=== PATIENT | female | born 1995 | race African-American/Black ===

== ENCOUNTER 2023-09-25 19:04 | Emergency (ER) | payer MEDICAID ==
[~2023-09-25] VITALS: Ht 165.1 cm; Wt 94.8 kg
[2023-09-25 20:09] LABS: ADD UA MICROSCOPIC YES; APPEARANCE,URINE CLOUDY (CLEAR); BILIRUBIN,URINE NEGATIVE (NEGATIVE); COLOR,URINE YELLOW (YELLOW); GLUCOSE, URINE (UA) 50 mg/dL (NEGATIVE); KETONES,URINE 60 mg/dL (NEGATIVE); LEUKOCYTE ESTERASE ,URINE 25 Leu/uL (NEGATIVE); NITRATE,URINE NEGATIVE (NEGATIVE); OCCULT BLOOD,URINE NEGATIVE (NEGATIVE); PROTEIN,URINE 70 mg/dL (NEGATIVE); UROBILINOGEN,URINE 0.2 mg/dL (0.2-1.0)
[2023-09-25 20:13] LABS: BACTERIA,URINE FEW /HPF (None Seen); MUCUS,URINE FEW LPF (None Seen); SQUAMOUS EPITHELIAL CELL,UR FEW /HPF (0-2); YEAST,URINE BUDDING RARE /HPF (None Seen)
[2023-09-25 20:20] LABS: BASOPHILS # (AUTO) 0.06 K/uL (0.00-0.20); BASOPHILS % (AUTO) 0.5 % (0.0-5.0); EOSINOPHILS # (AUTO) 0.02 K/uL (0.00-0.70); EOSINOPHILS % (AUTO) 0.2 % (0.0-8.0); HEMATOCRIT 39.7 % (36-48); IMMATURE GRANULOCYTE ABSOLUTE 0.06 K/uL (0-1); LYMPHOCYTES # (AUTO) 1.6 K/uL (1.0-4.8); LYMPHOCYTES % (AUTO) 13.6 % (21.0-51.0); MEAN CORPUSCULAR HEMOGLOBIN 33.5 pg (27.0-33.0); MEAN CORPUSCULAR HGB CONC 34.8 g/dL (32.0-36.0); MEAN CORPUSCULAR VOLUME 96.4 fL (79-99); MONOCYTES # (AUTO) 0.9 K/uL (0.1-1.0); MONOCYTES % (AUTO) 7.5 % (3.0-13.0); NEUTROPHILS # (AUTO) 9.4 K/uL (1.8-7.7); NEUTROPHILS % (AUTO) 77.7 % (40.0-77.0); PLATELET COUNT (AUTO) 259 K/uL (130-400); RED BLOOD CELL COUNT(AUTO) 4.12 MIL/uL (4.00-5.50); RED CELL DISTRIBUTION WIDTH 11.8 % (11.0-15.5); WHITE BLOOD COUNT (AUTO) 12.1 K/uL (4.8-10.8)
[2023-09-25 20:31] LABS: CREATININE 0.7 mg/dL (0.5-1.0); POTASSIUM 3.5 mmol/L (3.5-5.1)
[2023-09-25] MEDS: METOCLOPRAMIDE 10 MG/2 ML VIAL IVP ONE (20:46)
[2023-09-25] MEDS: LACTATED RINGERS 1000ML 1,000 ML IV ONE (20:47)
[2023-09-25 20:57] LABS: ALBUMIN 4.1 g/dL (3.5-5.0); BILIRUBIN,TOTAL 0.3 mg/dL (0.2-1.0); TOTAL PROTEIN, SERUM 8.1 g/dL (6.0-8.3)
[2023-09-25] MEDS ORDERED: METO5 PO ×2 (21:12)
[2023-09-25] MEDS ORDERED: CEPH500T PO ×2 (21:12)
[2023-09-25] MEDS: CEFTRIAXONE 1G VIAL IVPB ONE (21:27)
[2023-09-25 21:57] VITALS: BP 136/74; PULSE 80; RESP 20
[2023-10-02] MEDS ORDERED: ONDA-243 PO (14:02)
== END 2023-09-25 22:05 | disposition home or self-care (01) ==
LOC: EDH 19:04
DX: O21.9 Vomiting of pregnancy, unspecified (principal); O23.41 Unspecified infection of urinary tract in pregnancy, first trimester; O26.891 Other specified pregnancy related conditions, first trimester; R10.2 Pelvic and perineal pain; I10 Essential (primary) hypertension; Z79.899 Other long term (current) drug therapy; Z98.890 Other specified postprocedural states; Z3A.01 Less than 8 weeks gestation of pregnancy
CPT/HCPCS: 99285; 96365; 76801; 96361; 96375; 80053; 84702; 83690; 85025; 81001; 36415; J7120; J0696; J2765

== ENCOUNTER 2023-09-27 09:25 | Observation (INO) | payer MEDICAID ==
[~2023-09-27] VITALS: Ht 165.1 cm; Wt 94.8 kg
[~2023-09-27 09:25] MED LIST: CEPH500T PO; METO5 PO
[2023-09-27 10:00] LABS: BASOPHILS # (AUTO) 0.07 K/uL (0.00-0.20); BASOPHILS % (AUTO) 0.5 % (0.0-5.0); EOSINOPHILS # (AUTO) 0.02 K/uL (0.00-0.70); EOSINOPHILS % (AUTO) 0.1 % (0.0-8.0); HEMATOCRIT 37.1 % (36-48); IMMATURE GRANULOCYTE ABSOLUTE 0.07 K/uL (0-1); LYMPHOCYTES # (AUTO) 1.7 K/uL (1.0-4.8); LYMPHOCYTES % (AUTO) 11.6 % (21.0-51.0); MEAN CORPUSCULAR HEMOGLOBIN 33.6 pg (27.0-33.0); MEAN CORPUSCULAR VOLUME 95.9 fL (79-99); MONOCYTES # (AUTO) 1.3 K/uL (0.1-1.0); NEUTROPHILS # (AUTO) 11.5 K/uL (1.8-7.7); NEUTROPHILS % (AUTO) 78.3 % (40.0-77.0); PLATELET COUNT (AUTO) 270 K/uL (130-400); RED BLOOD CELL COUNT(AUTO) 3.87 MIL/uL (4.00-5.50); RED CELL DISTRIBUTION WIDTH 11.9 % (11.0-15.5); WHITE BLOOD COUNT (AUTO) 14.7 K/uL (4.8-10.8)
[2023-09-27] MEDS ORDERED: MAGNESIUM 2GM PREMIX 50ML 50 ML IV SCH (10:00)
[2023-09-27] MEDS: LABETALOL 20MG VIAL IV ONE (10:08)
[2023-09-27] MEDS: ONDANSETRON 4MG INJ IVP ONE (10:08)
[2023-09-27 10:16] LABS: INR 0.97 (0.85-1.15); PROTHROMBIN TIME 11.5 SEC (9.6-11.6)
[2023-09-27 10:40] LABS: BILIRUBIN,TOTAL 0.5 mg/dL (0.2-1.0); CREATININE 0.5 mg/dL (0.5-1.0); POTASSIUM 3.1 mmol/L (3.5-5.1); TOTAL PROTEIN, SERUM 7.9 g/dL (6.0-8.3)
[2023-09-27 11:00] VITALS: PULSE 81
[2023-09-27 12:13] VITALS: O2SAT 96
[2023-09-27 13:56] VITALS: BP 155/73; PULSE 76
[2023-09-27] MEDS: LACTATED RINGERS 1000ML 1,000 ML IV SCH (14:07)
[2023-09-27] MEDS: ONDANSETRON 4MG INJ IVP PRN (14:07)
[2023-09-27 15:25] LABS: APPEARANCE,URINE CLEAR (CLEAR); BILIRUBIN,URINE NEGATIVE (NEGATIVE); GLUCOSE, URINE (UA) 50 mg/dL (NEGATIVE); KETONES,URINE 150 mg/dL (NEGATIVE); LEUKOCYTE ESTERASE ,URINE NEGATIVE Leu/uL (NEGATIVE); NITRATE,URINE NEGATIVE (NEGATIVE); OCCULT BLOOD,URINE NEGATIVE (NEGATIVE); PH,URINE 6.5 (5.0-8.0); PROTEIN,URINE 200 mg/dL (NEGATIVE); UROBILINOGEN,URINE 0.2 mg/dL (0.2-1.0)
[2023-09-27 15:27] LABS: ADD UA MICROSCOPIC YES
[2023-09-27 15:31] LABS: BACTERIA,URINE RARE /HPF (None Seen); MUCUS,URINE MOD LPF (None Seen); SQUAMOUS EPITHELIAL CELL,UR RARE /HPF (0-2)
[2023-09-27 15:32] LABS: COLOR,URINE DARK YELLOW (YELLOW)
[2023-09-27] MEDS: LABETALOL HCL 100 MG TABLET PO SCH (15:40)
[2023-09-27] MEDS: ACETAMINOPHEN 325 MG TAB PO PRN (15:52)
[2023-09-27 16:00] VITALS: BP 147/79; PULSE 58; RESP 18
[2023-09-27 19:30] VITALS: BP 133/78; PULSE 78; RESP 18
[2023-09-27] MEDS: FAMOTIDINE 20MG VIAL IV SCH (20:48)
[2023-09-27] MEDS: DOCUSATE SODIUM 100 MG CAP PO SCH (21:56)
[2023-09-27 23:46] VITALS: BP 132/75; PULSE 81; RESP 20
[2023-09-28 02:32] VITALS: BP 129/68; PULSE 77; RESP 18
[2023-09-28 07:17] LABS: BASOPHILS # (AUTO) 0.08 K/uL (0.00-0.20); BASOPHILS % (AUTO) 0.8 % (0.0-5.0); EOSINOPHILS # (AUTO) 0.13 K/uL (0.00-0.70); EOSINOPHILS % (AUTO) 1.2 % (0.0-8.0); HEMATOCRIT 33.6 % (36-48); IMMATURE GRANULOCYTE ABSOLUTE 0.03 K/uL (0-1); LYMPHOCYTES # (AUTO) 1.4 K/uL (1.0-4.8); LYMPHOCYTES % (AUTO) 12.7 % (21.0-51.0); MEAN CORPUSCULAR HGB CONC 34.5 g/dL (32.0-36.0); MEAN CORPUSCULAR VOLUME 95.5 fL (79-99); MONOCYTES # (AUTO) 1.2 K/uL (0.1-1.0); NEUTROPHILS # (AUTO) 7.9 K/uL (1.8-7.7); PLATELET COUNT (AUTO) 251 K/uL (130-400); RED BLOOD CELL COUNT(AUTO) 3.52 MIL/uL (4.00-5.50); RED CELL DISTRIBUTION WIDTH 11.9 % (11.0-15.5); WHITE BLOOD COUNT (AUTO) 10.6 K/uL (4.8-10.8)
[2023-09-28 07:26] VITALS: BP 147/92; PULSE 64
[2023-09-28 07:26] LABS: INR 0.97 (0.85-1.15); PROTHROMBIN TIME 11.5 SEC (9.6-11.6)
[2023-09-28 07:28] LABS: PARTIAL THROMBOPLASTIN TIME 26.8 SEC (26.3-35.5)
[2023-09-28 07:39] LABS: ALBUMIN 3.5 g/dL (3.5-5.0); BILIRUBIN,TOTAL 0.5 mg/dL (0.2-1.0); CREATININE 0.6 mg/dL (0.5-1.0); TOTAL PROTEIN, SERUM 6.9 g/dL (6.0-8.3); URIC ACID 3.2 mg/dL (2.6-7.2)
[2023-09-28] MEDS ORDERED: POTASSIUM CHLORIDE 10% ELIXIR 20 MEQ/15 ML UDCUP PO PRN (09:30)
[2023-09-28] MEDS: KCL 20 MEQ ERTAB PO PRN (10:16)
[2023-09-28] MEDS: PROMETHAZINE HCL 25 MG/ML 1ML AMPULE IM PRN (10:17)
[2023-09-28 11:10] VITALS: BP 150/89; PULSE 57
[2023-09-28] MEDS: GUAIFENESIN-DM 200/20 MG 10 ML PO PRN (12:04)
[2023-09-28 13:08] LABS: RAPID GROUP A STREP negative (NEGATIVE)
[2023-09-28 13:09] LABS: SARS-CoV-2, RNA, NAAT NEGATIVE SARS CoV-2 (NEGATIVE)
[2023-09-28 13:29] LABS: INFLUENZA TYPE A Negative For Type A (NEGATIVE); INFLUENZA TYPE B Negative For Type B (NEGATIVE)
[2023-09-28 16:38] VITALS: BP 138/77; PULSE 64; RESP 18
[2023-09-28 17:00] LABS: CREATININE,SERUM FOR CRCL 0.6 mg/dL (0.6-1.3)
[2023-09-28] MEDS: POTASSIUM CHLORIDE 20MEQ/100ML 100 ML IV PRN (18:12)
[2023-09-28 19:20] VITALS: BP 145/88; PULSE 72; RESP 20
[2023-09-29 00:01] VITALS: BP 131/88; PULSE 71; RESP 18
[2023-09-29 04:12] VITALS: BP 143/85; PULSE 77; RESP 18
[2023-09-29 07:30] VITALS: BP 133/81; PULSE 78; RESP 20
[2023-09-29 11:25] VITALS: BP 131/78; PULSE 82; RESP 20
[2023-09-29 13:41] VITALS: BP 135/84; PULSE 88; RESP 20
[2023-10-02] MEDS ORDERED: ONDA-243 PO (14:02)
== END 2023-09-29 15:15 | disposition home or self-care (01) ==
LOC: EDH 09:25 → WSH 09:26 → EDH 12:20 → WSH 09-28 19:04
PROVIDERS: ADMIT Obstetrics & Gynecology; ATTEND Obstetrics & Gynecology
DX: O21.8 Other vomiting complicating pregnancy (principal); Z20.822 Contact with and (suspected) exposure to COVID-19; O13.1 Gestational [pregnancy-induced] hypertension without significant proteinuria, first trimester; O26.891 Other specified pregnancy related conditions, first trimester; R10.11 Right upper quadrant pain; R51.9 Headache, unspecified; R19.7 Diarrhea, unspecified; Z3A.08 8 weeks gestation of pregnancy
CPT/HCPCS: 96374; 96376 ×3; 96361 ×4; 96375; 99284; 84484; 80053 ×2; 84702; 85025 ×2; 85610 ×2; 81001; 36415 ×3; 76801; 93005; 96372; 82575; 84156; 84550; 85384; 85730; 87880; 87804 ×2; 87635; 84132; G0378 ×50; S0028 ×3; J2405 ×7; J3490; J7120 ×4; J2550; J3480

== ENCOUNTER 2023-10-02 11:50 | Emergency (ER) | payer MEDICAID ==
[~2023-10-02] VITALS: Ht 165.1 cm; Wt 94.8 kg
[2023-10-02 12:01] VITALS: PULSE 98; RESP 18
[2023-10-02 12:45] LABS: BASOPHILS # (AUTO) 0.04 K/uL (0.00-0.20); BASOPHILS % (AUTO) 0.3 % (0.0-5.0); EOSINOPHILS # (AUTO) 0.07 K/uL (0.00-0.70); EOSINOPHILS % (AUTO) 0.6 % (0.0-8.0); HEMATOCRIT 37.8 % (36-48); IMMATURE GRANULOCYTE ABSOLUTE 0.05 K/uL (0-1); LYMPHOCYTES # (AUTO) 1.6 K/uL (1.0-4.8); LYMPHOCYTES % (AUTO) 13.8 % (21.0-51.0); MEAN CORPUSCULAR HGB CONC 35.7 g/dL (32.0-36.0); MEAN CORPUSCULAR VOLUME 92.4 fL (79-99); MONOCYTES % (AUTO) 8.8 % (3.0-13.0); NEUTROPHILS # (AUTO) 8.7 K/uL (1.8-7.7); NEUTROPHILS % (AUTO) 76.1 % (40.0-77.0); PLATELET COUNT (AUTO) 327 K/uL (130-400); RED BLOOD CELL COUNT(AUTO) 4.09 MIL/uL (4.00-5.50); RED CELL DISTRIBUTION WIDTH 11.6 % (11.0-15.5); WHITE BLOOD COUNT (AUTO) 11.5 K/uL (4.8-10.8)
[2023-10-02] MEDS: ONDANSETRON 4MG INJ IVP ONE (12:51)
[2023-10-02] MEDS: 0.9%NACL 1000ML 1,000 ML IV ONE (12:51)
[2023-10-02 13:01] LABS: CREATININE 0.5 mg/dL (0.5-1.0); POTASSIUM 3.2 mmol/L (3.5-5.1)
[2023-10-02 13:06] LABS: ALBUMIN 3.8 g/dL (3.5-5.0); BILIRUBIN,TOTAL 0.4 mg/dL (0.2-1.0)
[2023-10-02 13:59] VITALS: BP 139/81
[2023-10-02] MEDS ORDERED: ONDA4TAB10 PO (14:02)
[2023-10-02] MEDS: ACETAMINOPHEN 500 MG TABLET PO ONE (14:07)
[2023-10-02] MEDS: KCL 20 MEQ ERTAB PO ONE (14:08)
== END 2023-10-02 14:34 | disposition home or self-care (01) ==
LOC: EDH 11:50
DX: O26.891 Other specified pregnancy related conditions, first trimester (principal); R07.89 Other chest pain; O21.1 Hyperemesis gravidarum with metabolic disturbance; E86.0 Dehydration; I10 Essential (primary) hypertension; Z79.899 Other long term (current) drug therapy; Z98.890 Other specified postprocedural states; Z3A.10 10 weeks gestation of pregnancy
CPT/HCPCS: 99284; 96374; 96361; 84484; 80053; 85025; 36415; 93005; J7030; J2405

== ENCOUNTER 2024-11-20 15:43 | Emergency (ER) | payer MEDICAID ==
[~2024-11-20] VITALS: Ht 167.6 cm; Wt 98.0 kg
[~2024-11-20 15:43] MED LIST changes: +ONDA-243 PO
--- NOTE | 2024-11-20 15:57 | ERN ---
ED Note History of Present Illness Stated Complaint: CHEST PAIN Chief Complaint: Chest Pain Time Seen by MD: 15:46 Dictation: PATIENT IS A 29-YEAR-OLD FEMALE COMING IN TODAY WITH A COMPLAINTS OF LEFT ANTERIOR CHEST WALL AND CHEST PAIN ONSET THREE DAYS PRIOR TO ARRIVAL. NO FEVER NO CHILLS. SHE STATES WORSE WITH COUGH OR PALPATION. STATES SHE HAD DENTAL SURGERY THREE DAYS AGO. HE HAS NOT BEEN TO SEE HER PRIMARY CARE DOCTOR DENIES ANY HISTORY OF HYPERTENSION DIABETES OR CAD. Allergies: Coded Allergies: No Known Drug Allergies (Unverified Allergy, Unknown, 09/25/23) Home Meds Active Scripts Ondansetron (Ondansetron Odt) 4 Mg Tab.rapdis, 4 MG PO Q6HPRN PRN for nausea, #16 TAB 0 Refills Prov:CIRILO ANDRADE NP 10/02/23 Metoclopramide HCl (Reglan) 5 Mg Tab, 5 MG PO Q6HPRN PRN for NAUSEA/VOMITING, #20 TAB Prov:GIGI AGUDELO MD 09/25/23 Cephalexin (Cephalexin) 500 Mg Tablet, 500 MG PO TID for 4 Days, #12 TAB Start on 09/26/2023 Prov:GIGI AGUDELO MD 09/25/23 Past Medical History Past Medical History: Hypertension, Other Additional Past Medical Hx: PREECLAMPSIA Surgical History: None Social History: Drugs, ETOH : 3 Para: 2 Aborts: 0 RN Note Reviewed/Agreed w/PFSH: Yes Review of System Dictation CONSTITUTIONAL: NEGATIVE EXCEPT FOR HPI HEAD/FACE: NEGATIVE EXCEPT FOR HPI EENT: NEGATIVE EXCEPT FOR HPI RESPIRATORY: NEGATIVE EXCEPT FOR HPI LEFT CHEST PAIN GASTROINTESTINAL/ABDOMINAL: NEGATIVE EXCEPT FOR HPI GENITOURINARY: NEGATIVE EXCEPT FOR HPI MUSCULOSKELETAL: NEGATIVE EXCEPT FOR HPI INTEGUMENTARY: NEGATIVE EXCEPT FOR HPI NEUROLOGICAL/PSYCH: NEGATIVE EXCEPT FOR HPI HEMATOLOGIC/LYMPHATIC: NEGATIVE EXCEPT FOR HPI ALL SYSTEMS NEGATIVE, EXCEPT NOTED ABOVE. 13 POINT REVIEW OF SYSTEMS ASSESSED AND ALL NEGATIVE EXCEPT FOR ABOVE. Initial Vital Sign VS Vital Signs Date Time Temp Pulse Resp B/P (MAP) Pulse Ox O2 Delivery O2 Flow Rate FiO2 11/20/24 15:46 87.3 120 18 141/107 96 Room Air 0 Physical Exam Dictation VITAL SIGNS REVIEWED GENERAL APPEARANCE: ALERT, ORIENTED X 3, MODERATE ACUTE DISTRESS, WELL DEVELOP ED, NOURISHED. HEAD AND FACE: NON-TRAUMATIC. EYES: PERRL, PINK CONJUNCTIVAS, EYELID NO TRAUMA, ANTERIOR CHAMBER WITH ARCUS SENILIS. EARS: PINNAS INTACT AND NO SIGNS OF TRAUMA OR ERYTHEMA EAR CANALS CLEAR AND NO DISCHARGE TM NO ERYTHEMA NOSE: NO DISCHARGE, NO BLEEDING. OROPHARYNX: MOUTH NORMAL, TONGUE PINK, PHARYNX CLEAR,NO ERYTHEMA, TONSILS NO EXUDATES, NO ABSCESSES NOTED, MUCOUS MEMBRANE MOIST NECK: SUPPLE, NON-TENDER, NO THYROMEGALY, NO MASSES, NO JVD, NO BRUITS BREAST:DEFERRED CHEST:NO TENDERNESS, NO CREPITUS, NO PARADOXICAL MOVEMENT, NO RETRACTIONS LUNGS:CLEAR, WELL-VENTILATED, SYMMETRIC, NO RALES, NO WHEEZING, NO RHONCHI, NO STRIDOR, GOOD BREATH SOUNDS BILATERALLY HEART: REGULAR RATE, REGULAR RHYTHM, NO MURMUR, NO GALLOPS VASCULAR: NO PERIPHERAL EDEMA, ABDOMEN: SOFT, POSITIVE BOWEL SOUNDS, NONDISTENDED, NO GUARDING, NONTENDER, NO REBOUND, NO MASSES NO HEPATOMEGALY, NO SPLENOMEGALY, NO VALDEZ'S SIGN, NO HERNIAS. RECTAL: DEFERRED GENITAL: DEFERRED NEUROLOGICAL: NORMAL SPEECH, MOTOR FUNCTION INTACT, SENSORY FUNCTION INTACT MUSCULOSKELETAL: NECK NONTENDER, FULL RANGE OF MOTION, BACK NONTENDER, FULL RANGE OF MOTION, EXTREMITIES: NONTENDER, FULL RANGE OF MOTION SKIN: COLOR PINK, DRY, NO TURGOR, NO RASH, NO LACERATIONS, NO ABRASIONS, NO CONTUSIONS. LYMPHATIC: DEFERRED Results (Laboratory/Radiology) Laboratory/Radiology Laboratory Tests Test 11/20/24 16:03 White Blood Count 5.9 K/uL (4.8-10.8) Red Blood Count 4.78 MIL/uL (4.00-5.50) Hemoglobin 15.6 g/dL (12.0-16.0) Hematocrit 44.5 % (36-48) Mean Corpuscular Volume 93.1 fL (79-99) Mean Corpuscular Hemoglobin 32.6 pg (27.0-33.0) Mean Corpuscular Hemoglobin Concent 35.1 g/dL (32.0-36.0) Red Cell Distribution Width 12.1 % (11.0-15.5) Platelet Count 295 K/uL (130-400) Mean Platelet Volume 9.6 fL (7.5-10.5) Immature Granulocyte % (Auto) 0.2 % (0-1) Neutrophils (%) (Auto) 42.0 % (40.0-77.0) Lymphocytes (%) (Auto) 39.6 % (21.0-51.0) Monocytes (%) (Auto) 16.5 % (3.0-13.0) H Eosinophils (%) (Auto) 0.7 % (0.0-8.0) Basophils (%) (Auto) 1.0 % (0.0-5.0) Neutrophils # (Auto) 2.5 K/uL (1.8-7.7) Lymphocytes # (Auto) 2.3 K/uL (1.0-4.8) Monocytes # (Auto) 1.0 K/uL (0.1-1.0) Eosinophils # (Auto) 0.04 K/uL (0.00-0.70) Basophils # (Auto) 0.06 K/uL (0.00-0.20) Absolute Immature Granulocyte (auto 0.01 K/uL (0-1) Nucleated Red Blood Cells 0.0 % (0.0-0.19) White Cell Morphology Comment See comments Sodium Level 141 mmol/L (136-145) Potassium Level 3.5 mmol/L (3.5-5.1) Chloride Level 104 mmol/L (101-111) Carbon Dioxide Level 20 mmol/L (21-32) L Blood Urea Nitrogen 12 mg/dL (7-18) Creatinine 0.8 mg/dL (0.5-1.0) Glomerular Filtration Rate Calc 103 mL/min (>90) Random Glucose 105 mg/dL (70-105) Total Calcium 9.6 mg/dL (8.5-10.1) Troponin I High Sensitivity 18 ng/L (4-50) 1VW HISTORY: Left anterior chest pain COMPARISON: None FINDINGS: A frontal projection of the chest was obtained. No acute pulmonary infiltrates is seen. The heart is normal in size. No evidence of aortic calcification is seen. IMPRESSION: 1. No acute pulmonary infiltrate is seen. Labs Reviewed?: Yes EKG Comment: EKG SINUS TACHYCARDIA/HEART RATE 105/BIATRIAL ENLARGEMENT T-WAVE INVERSION LEADS V4 V5 V6 ED Course ED Course Orders Procedure Category Date Status Time Cbc With Differential LAB 11/20/24 Complete 15:54 Troponin I High LAB 11/20/24 Complete Sensitivity 15:54 12 Lead Ekg Tracing- EKG 11/20/24 Logged Technical 15:54 Ketorolac PHA 11/20/24 Complete Tromethamine 30mg/Ml 16:00 Chest 1vw RAD 11/20/24 Resulted 15:54 Basic Metabolic Panel LAB 11/20/24 Complete 15:54 Lidocaine Hcl 2% PHA 11/20/24 Logged Viscous (Lidocaine Hcl 17:30 Mag/Alum/Simeth 30ml PHA 11/20/24 Logged (Maalox Plus 30ml) 17:30 Dicyclomine Hcl PHA 11/20/24 Logged (Bentyl 10mg/5ml 17:30 Gi Cocktail(Viscous PHA 11/20/24 Verified Lido 2%) 17:30 Gi Cocktail (Maalox PHA 11/20/24 Verified 30ml) 17:30 Gi Cocktail(Bentyl PHA 11/20/24 Verified 10mg) 17:30 Current Medications Medications (Trade) Dose Ordered Sig/Layo Route PRN Reason Start Time Stop Time Status Last Admin Dose Admin Al Hydroxide/Mg Hydroxide (MAALox PLUS 30ML) 30 ml ONCE ONCE PO 11/20/24 17:30 11/20/24 17:31 UNV Dicyclomine HCl (Bentyl 10mg/5ml Syrup) 10 mg ONCE ONCE PO 11/20/24 17:30 11/20/24 17:31 UNV Ketorolac Tromethamine (toRADol) 30 mg ONCE ONCE IVP 11/20/24 16:00 11/20/24 16:01 DC Lidocaine HCl (Lidocaine HCl 2% Viscous) 10 ml ONCE ONCE PO 11/20/24 17:30 11/20/24 17:31 UNV Vital Signs Date Time Temp Pulse Resp B/P (MAP) Pulse Ox O2 Delivery O2 Flow Rate FiO2 11/20/24 15:46 87.3 120 18 141/107 96 Room Air 0 1708/PATIENT STATES THE PAIN IS WORSE AFTER FOOD. SHE IS AWARE THAT EKG LABS ARE ESSENTIALLY NEGATIVE TROPONIN NORMAL. CHEST X-RAY CLEAR SHE WILL BE DISCHARGED HOME TO FOLLOW UP WITH HER DOCTOR ON FRIDAY. SHE STATES SHE HAS A HISTORY OF CHRONIC GASTRITIS IN HIS BEEN WORSE FOR THE LAST FEW MONTHS. HEART Score Response (Comments) Value EKG: Repolarization changes 1 Age: < 45yrs (0) 0 Risk Factors: 1-2 risk factors (+1) 1 Initial Troponin: Normal limit (0) 0 Total 2 Medical Decision Making MDM MEDICAL DISCHARGE MAKING BASED ON BASIC LABS AND EKG WITH CHEST X-RAY. CARDIAC WORKUP NEGATIVE EXCEPT FOR T-WAVE CHANGES IN SEVERAL LEADS TROPONIN NEGATIVE REMAINDER OF WORKUP NEGATIVE PATIENT DISCHARGED WITH A ACUTE GASTRITIS AND WE WILL BE TREATED WITH GI COCKTAIL SENT HOME WITH THE OMEPRAZOLE AND CARAFATE DX & DISP Disposition: Discharge Departure Impression: Primary Impression: Atypical chest pain Additional Impression: Acute gastritis Condition: Stable Scripts Omeprazole (Omeprazole) 40 Mg Capsule.dr 1 CAP PO DAILY for 30 Days, #30 CAP 0 Refills Prov: CIRILO ANDRADE NP 11/20/24 Sucralfate (Carafate) 1 Gram Tablet 1 GM PO ACHS for 10 Days, #40 TAB Prov: CIRILO ANDRADE NP 11/20/24 Additional Instructions: FOLLOW-UP WITH PRIMARY CARE PROVIDER IN 1 TO 2 DAYS. TAKE MEDICATIONS DIRECTED HERE IN THE EMERGENCY ROOM. OKAY TO CONTINUE HOME MEDICATIONS UNLESS OTHERWISE DISCUSSED DURING YOUR VISIT IN THE EMERGENCY ROOM TODAY. RETURN TO YOUR NEAREST EMERGENCY ROOM IF SYMPTOMS WORSEN OR IF THERE IS NO IMPROVEMENT. CALL 911 IF YOU NEED IMMEDIATE ASSISTANCE. TAKE TYLENOL OR MOTRIN [id number] NEEDED AND IF NO CONTRAINDICATIONS ARE PRESENT. INCREASE ORAL HYDRATION. A WOUND CULTURE OR URINE CULTURE WAS ORDERED HERE IN THE EMERGENCY ROOM DEPARTMENT PLEASE FOLLOW-UP WITH PRIMARY CARE PROVIDER AND ADVISE THEM TO GET REPEAT PORTS FROM OUR FACILITY. IF YOU HAD ANY CLAUDE WRAP/SPLINTS THAT WERE APPLIED HERE, PLEASE DO NOT REMOVE THEM UNTIL YOU SEE YOUR PRIMARY CARE OR SPECIALTY. FOLLOW A BLAND DIET WITH WATER FOR FLUIDS ONLY. NO SPICY FOODS, NO ALCOHOL, NO TOBACCO, NO ICE TEA, NO BUSY DRINKS OR SODA POP, NO SPICY FOODS UNTIL CLEARED BY YOUR DOCTOR ON FRIDAY. TAKE MEDICATIONS DIRECTED. Referrals: NONE (PCP) Time of Disposition: 17:10 I have reviewed the case, and I agree with, Diagnosis and Plan CIRILO ANDRADE NP November 20, 2024 15:56
[2024-11-20] MEDS ORDERED: ketOROlac 30MG VIAL (30MG/ML) IVP ONE (16:00)
[2024-11-20 16:09] LABS: BASOPHILS # (AUTO) 0.06 K/uL (0.00-0.20); EOSINOPHILS # (AUTO) 0.04 K/uL (0.00-0.70); EOSINOPHILS % (AUTO) 0.7 % (0.0-8.0); HEMATOCRIT 44.5 % (36-48); IMMATURE GRANULOCYTE ABSOLUTE 0.01 K/uL (0-1); LYMPHOCYTES # (AUTO) 2.3 K/uL (1.0-4.8); LYMPHOCYTES % (AUTO) 39.6 % (21.0-51.0); MEAN CORPUSCULAR HEMOGLOBIN 32.6 pg (27.0-33.0); MEAN CORPUSCULAR HGB CONC 35.1 g/dL (32.0-36.0); MEAN CORPUSCULAR VOLUME 93.1 fL (79-99); MONOCYTES % (AUTO) 16.5 % (3.0-13.0); NEUTROPHILS # (AUTO) 2.5 K/uL (1.8-7.7); PLATELET COUNT (AUTO) 295 K/uL (130-400); RED BLOOD CELL COUNT(AUTO) 4.78 MIL/uL (4.00-5.50); RED CELL DISTRIBUTION WIDTH 12.1 % (11.0-15.5); WHITE BLOOD COUNT (AUTO) 5.9 K/uL (4.8-10.8)
[2024-11-20 16:16] LABS: CREATININE 0.8 mg/dL (0.5-1.0); POTASSIUM 3.5 mmol/L (3.5-5.1)
--- NOTE | 2024-11-20 16:35 | HMCIMG ---
CHEST 1VW HISTORY: Left anterior chest pain COMPARISON: None FINDINGS: A frontal projection of the chest was obtained. No acute pulmonary infiltrates is seen. The heart is normal in size. No evidence of aortic calcification is seen. IMPRESSION: 1. No acute pulmonary infiltrate is seen.
[2024-11-20 17:08] VITALS: BP 135/92; PULSE 82; RESP 16; TEMP 97.1; O2SAT 98
[2024-11-20] MEDS ORDERED: OMEP40CA21 PO (17:11)
[2024-11-20] MEDS ORDERED: SUCR1TAB28 PO (17:11)
--- NOTE | 2024-11-20 17:16 | EKG ---
[facility] Test Date: 2024-11-20 Test Time: 15:50:27 Pat Name: CHRISTIAN MENJIVAR Department: ED Room: Gender: F [employer]ipe [employer]ding: [id number] : 1995 Requested By: CIRILO ANDRADE Order Number: [id number] Reading MD: Frank Thakur Measurements Intervals [place] Rate: 105 P: 74 NV: 135 QRS: 77 QRSD: 69 T: -57 QT: 307 QTc: 406 Interpretive Statements Sinus tachycardia Biatrial enlargement Abnormal T, consider ischemia, diffuse leads Compared to ECG 10/02/2023 12:50:28 Possible ischemia now present T-wave abnormality still present Electronically Signed On 11-22-2024 22:14:16 CDT by Frank Thakur Please click the below link to view image of tracing.
[2024-11-20] MEDS ORDERED: DICYCLOMINE HCL 10 MG/5 ML ML PO ONE (17:30)
[2024-11-20] MEDS ORDERED: LIDOCAINE HCL 2% VISCOUS 15 ML UDCUP PO ONE (17:30)
[2024-11-20] MEDS ORDERED: MAG/ALUM/SIMETH 30 ML UDCUP PO ONE (17:30)
[2024-11-20] MEDS: MAG/ALUM/SIMETH 30 ML UDCUP PO ONE (17:42)
[2024-11-20] MEDS: DICYCLOMINE HCL 10 MG/5 ML ML PO ONE (17:42)
[2024-11-20] MEDS: LIDOCAINE HCL 2% VISCOUS 15 ML UDCUP PO ONE (17:42)
== END 2024-11-20 18:00 | disposition home or self-care (01) ==
LOC: EDH 15:43
DX: R07.89 Other chest pain (principal); K29.00 Acute gastritis without bleeding; Z87.59 Personal history of other complications of pregnancy, childbirth and the puerperium
CPT/HCPCS: 36415; 71045; 80048; 84484; 85025; 93005; 99285

== ENCOUNTER 2025-02-02 12:24 | Emergency (ER) | payer MEDICAID ==
[~2025-02-02] VITALS: Ht 165.1 cm; Wt 95.3 kg
[~2025-02-02 12:24] MED LIST changes: +OMEP40CA21 PO; +SUCR1TAB28 PO
[2025-02-02 13:02] LABS: IMMATURE GRANULOCYTE ABSOLUTE 0.02 K/uL (0-1); NUCLEATED RED BLOOD CELLS 0.0 % (0.0-0.19); PLATELET COUNT (AUTO) 256 K/uL (130-400); RED BLOOD CELL COUNT(AUTO) 3.70 MIL/uL (4.00-5.50); RED CELL DISTRIBUTION WIDTH 12.3 % (11.0-15.5); WHITE BLOOD COUNT (AUTO) 6.9 K/uL (4.8-10.8)
[2025-02-02 13:07] LABS: CREATININE 0.7 mg/dL (0.5-1.0); GLOMERULAR FILTR. RATE CALC 121.0 mL/min (>90); GLUCOSE,RANDOM 92.0 mg/dL (70-105); SODIUM SERUM 142.0 mmol/L (136-145); UREA NITROGEN, BLOOD 10.0 mg/dL (7-18)
[2025-02-02] MEDS: 0.9%NACL 1000ML 1,000 ML IV ONE (13:14)
[2025-02-02 13:41] LABS: INFLUENZA TYPE A Negative For Type A (NEGATIVE); INFLUENZA TYPE B Negative For Type B (NEGATIVE)
[2025-02-02 13:44] LABS: COVID19 (SARS ANTIGEN RAPID) PRESUMPTIVE NEGATIVE (NEGATIVE)
--- NOTE | 2025-02-02 14:01 | ERN ---
ED Note History of Present Illness Stated Complaint: FATIGUE Chief Complaint: Fatigue Time Seen by MD: 12:29 Time Seen by Midlevel: 12:29 Dictation: 29-year-old female presents to the ED for generalized fatigue. Reports she has been menstruating since January 17. Dementia pain, shortness of breath, abdominal pain, nausea, vomiting, diarrhea. No past medical history. Denies alcohol use, drug use, smoking Allergies: Coded Allergies: No Known Drug Allergies (Unverified Allergy, Unknown, 09/25/23) Home Meds Active Scripts Omeprazole (Omeprazole) 40 Mg Capsule.dr, 1 CAP PO DAILY for 30 Days, #30 CAP 0 Refills Prov:CIRILO ANDRADE NP 11/20/24 Sucralfate (Carafate) 1 Gram Tablet, 1 GM PO ACHS for 10 Days, #40 TAB Prov:CIRILO ANDRADE NP 11/20/24 Ondansetron (Ondansetron Odt) 4 Mg Tab.rapdis, 4 MG PO Q6HPRN PRN for nausea, #16 TAB 0 Refills Prov:CIRILO ANDRADE NP 10/02/23 Metoclopramide HCl (Reglan) 5 Mg Tab, 5 MG PO Q6HPRN PRN for NAUSEA/VOMITING, #20 TAB Prov:GIGI AGUDELO MD 09/25/23 Cephalexin (Cephalexin) 500 Mg Tablet, 500 MG PO TID for 4 Days, #12 TAB Start on 09/26/2023 Prov:GIGI AGUDELO MD 09/25/23 Past Medical History Past Medical History: Hypertension, Other Additional Past Medical Hx: PREECLAMPSIA Surgical History: None Social History: Drugs, ETOH : 3 Para: 2 Aborts: 0 RN Note Reviewed/Agreed w/PFSH: Yes Review of System Dictation Constitutional: Negative for fever,chills, and weight loss Eyes: Negative for injury, pain,redness, and discharge ENT: Negative for injury,pain or swelling Cardiovascular: Negative for chest pain, palpitations, and edema Respiratory: Negative for shortness of breath, cough, and wheezing, Abdomen/GI: Negative for abdominal pain, nausea, vomiting, diarrhea, and constipation Back: Negative for injury and pain : Negative for injury, bleeding and discharge MS/Extremity: Negative for injury and deformity Skin: Negative for rash, and discoloration Neuro: Negative for headache, weakness, numbness, tingling, and seizure Psych: Negative for suicide ideation, homicidal ideation, and hallucinations Review of Systems: was completed Initial Vital Sign VS Vital Signs Date Time Temp Pulse Resp B/P (MAP) Pulse Ox O2 Delivery O2 Flow Rate FiO2 02/02/25 12: 97.7 77 18 142/92 97 Room Air 02/02/25 13:11 0 21 Physical Exam Dictation General: awake, alert, NAD Head/Face: Normocephalic, atraumatic Eyes: PERRL, EOMI, vision at baseline ENT: oral cavity clear, TMs clear, no signs of infection Neck: Trachea midline, supple, no nuchal rigidity Cardiovascular: RRR, normal S1/S2, No MRGs, no JVD Respiratory: CTAB, no respiratory distress, No rales or wheezes Abdomen: Soft, non-tender, non-distended, normal bowel sounds, no guarding or rebound. Skin: Warm, dry, normal turgor, no rash MS/Extremity: Pulses equal, no cyanosis, neurovascular intact, FROM Neuro: COAx4, GCS 15, strength 5/5, CN 2-12 intact, normal cerebellar exam, normal gait, Psych: Normal behavior, mood, and affect normal Results (Laboratory/Radiology) Laboratory/Radiology Laboratory Tests Test 02/02/25 12:45 02/02/25 13:00 02/02/25 14:12 White Blood Count 6.9 K/uL (4.8-10.8) Red Blood Count 3.70 MIL/uL (4.00-5.50) L Hemoglobin 11.9 g/dL (12.0-16.0) L Hematocrit 35.7 % (36-48) L Mean Corpuscular Volume 96.5 fL (79-99) Mean Corpuscular Hemoglobin 32.2 pg (27.0-33.0) Mean Corpuscular Hemoglobin Concent 33.3 g/dL (32.0-36.0) Red Cell Distribution Width 12.3 % (11.0-15.5) Platelet Count 256 K/uL (130-400) Mean Platelet Volume 9.7 fL (7.5-10.5) Immature Granulocyte % (Auto) 0.3 % (0-1) Neutrophils (%) (Auto) 49.2 % (40.0-77.0) Lymphocytes (%) (Auto) 39.6 % (21.0-51.0) Monocytes (%) (Auto) 9.0 % (3.0-13.0) Eosinophils (%) (Auto) 1.0 % (0.0-8.0) Basophils (%) (Auto) 0.9 % (0.0-5.0) Neutrophils # (Auto) 3.4 K/uL (1.8-7.7) Lymphocytes # (Auto) 2.7 K/uL (1.0-4.8) Monocytes # (Auto) 0.6 K/uL (0.1-1.0) Eosinophils # (Auto) 0.07 K/uL (0.00-0.70) Basophils # (Auto) 0.06 K/uL (0.00-0.20) Absolute Immature Granulocyte (auto 0.02 K/uL (0-1) Nucleated Red Blood Cells 0.0 % (0.0-0.19) Sodium Level 142 mmol/L (136-145) Potassium Level 3.5 mmol/L (3.5-5.1) Chloride Level 106 mmol/L (101-111) Carbon Dioxide Level 26 mmol/L (21-32) Blood Urea Nitrogen 10 mg/dL (7-18) Creatinine 0.7 mg/dL (0.5-1.0) Glomerular Filtration Rate Calc 121 mL/min (>90) Random Glucose 92 mg/dL (70-105) Total Calcium 8.7 mg/dL (8.5-10.1) Influenza Type A Antigen Negative For Type A Influenza Type B Antigen Negative For Type B SARS-CoV-2 Antigen (Rapid) PRESUMPTIVE NEGATIVE Urine Color YELLOW (YELLOW) Urine Appearance CLEAR (CLEAR) Urine pH 6.0 (5.0-8.0) Urine Specific [place] 1.034 (1.001-1.031) Urine Protein 20 mg/dL (NEGATIVE) H Urine Glucose (UA) NEGATIVE mg/dL (NEGATIVE) Urine Ketones NEGATIVE mg/dL (NEGATIVE) Urine Occult Blood SMALL (NEGATIVE) H Urine Nitrate NEGATIVE (NEGATIVE) Urine Bilirubin NEGATIVE mg/dL (NEGATIVE) Urine Urobilinogen 0.2 mg/dL (0.2-1.0) Urine Leukocyte Esterase NEGATIVE Mello/uL Urine RBC 0-1 /HPF (0-1) Urine WBC 0-1 /HPF (0-1) Urine Squamous Epithelial Cells RARE /HPF (0-2) Urine Bacteria None /HPF (None Seen) Urine HCG, Qualitative NEGATIVE (NEGATIVE) Labs Reviewed?: Yes ED Course ED Course Orders Procedure Category Date Status Time Cbc With Differential LAB 02/02/25 Complete 12:32 Basic Metabolic Panel LAB 02/02/25 Complete 12:32 Urinalysis LAB 02/02/25 Complete W/Microscopic 12:32 ,Urine Test LAB 02/02/25 Complete 12:32 Covid19 (Sars Antigen LAB 02/02/25 Complete Rapid) 12:32 Influenza Type A & B, LAB 02/02/25 Complete Rapid 12:32 0.9%Nacl 1000ml (Ns PHA 02/02/25 Complete 1000ml) 13:00 Current Medications Medications (Trade) Dose Ordered Sig/Layo Route PRN Reason Start Time Stop Time Status Last Admin Dose Admin Sodium Chloride 1,000 ml @ 0 mls/hr ONCE ONCE IV 02/02/25 13:00 02/02/25 13:01 DC 02/02/25 13:14 Vital Signs Date Time Temp Pulse Resp B/P (MAP) Pulse Ox O2 Delivery O2 Flow Rate FiO2 02/02/25 13:11 98.4 70 16 121/78 98 Room Air* 0 21 02/02/25 12:25 97.7 77 18 142/92 97 Room Air Medical Decision Making MDM MDM: Differential diagnosis: Anemia, dysmenorrhea, menorrhagia, electrolyte abnormality, acute dehydration Rationale: Tests considered and ordered secondary to shared decision making include: Previous outside records reviewed: Old ER visits. Medications-Per medication reconciliation Need for hospitalization: Patient does not meet criteria for hospitalization. Need for emergency major/minor surgery: No Patient's prior external medical records from other ER visits were reviewed by me as indicated. Prior testing and results from previous visits were reviewed. Prior tests were taken into account with medical decision making and resource utilization, independent historian/historians were used to obtain complete medical history. I independently interpreted the test that were performed, results were reviewed by me and considered findings on radiology if ordered. Medical management and examination interpretation discussions were had by me with other qualified healthcare professionals as indicated for the patient's care. Patient came in with generalized fatigue after having a prolonged period for the past two weeks. No abdominal pain, tenderness. No rebound, guarding, rigidity. No nausea, vomiting. Vital signs are stable. Patient is already bolus of NS with the improvement in symptoms. UA not consistent UTI. Negative hCG. Anemia with a hemoglobin 11.9. No need for blood transfusion. No electrolyte abnormalities. Negative for COVID, flu. Patient be discharged home in stable condition recommended to follow up with OBGYN. Return precautions discussed with patient. Patient verbalized understanding, agreed with plan, and all questions were answered at this time. DX & DISP Disposition: Discharge Departure Impression: Primary Impression: Anemia Additional Impressions: Acute dehydration, Menorrhagia Condition: Stable Additional Instructions: DISCHARGE HOME. REST. FOLLOW UP WITH PRIMARY CARE DRJuan IN 24 HOURS and/or electrical engineering professor RETURN TO THE ER FOR ANY ACUTE CHANGE. PATIENT WAS ALSO ADVISED TO FOLLOW-UP WITH PRIMARY CARE PHYSICIAN IN 1 TO 2 DAYS FOR CONTINUED MONITORING. ALL INSTRUCTIONS WERE GIVEN TO LAYMANS TERM AND PATIENT AGREEABLE TO DISCHARGE AND PROPER FOLLOW-UP. Referrals: SELF,REFERRAL (PCP) I have reviewed the case, and I agree with, Diagnosis and Plan DIXIE MODI Feb 02, 2025 14:01
[2025-02-02 14:40] LABS: APPEARANCE,URINE CLEAR (CLEAR); GLUCOSE, URINE (UA) NEGATIVE (NEGATIVE); LEUKOCYTE ESTERASE ,URINE NEGATIVE Leu/uL (NEGATIVE); NITRATE,URINE NEGATIVE (NEGATIVE); OCCULT BLOOD,URINE SMALL (NEGATIVE)
[2025-02-02 14:42] LABS: HCG,QUALITATIVE URINE NEGATIVE (NEGATIVE)
[2025-02-02 14:49] LABS: SQUAMOUS EPITHELIAL CELL,UR RARE /HPF (0-2)
[2025-02-02 15:22] VITALS: BP 122/68; PULSE 78; RESP 16; TEMP 98.7; O2SAT 97
== END 2025-02-02 15:30 | disposition home or self-care (01) ==
LOC: EDH 12:24
DX: D64.9 Anemia, unspecified (principal); E86.0 Dehydration; N92.0 Excessive and frequent menstruation with regular cycle; I10 Essential (primary) hypertension; Z79.899 Other long term (current) drug therapy; Z20.822 Contact with and (suspected) exposure to COVID-19
CPT/HCPCS: 99284; 96360; 87426; 80048; 85025; 87804 ×2; 81001; 81025; 36415; J7030